=== PATIENT | male | born 1950 | race Caucasian/White ===

== ENCOUNTER 2021-06-20 09:00 | Observation (INO) ==
--- NOTE | 2021-06-14 14:53 | Anesthesiology Consultation ---
Date of Service June 14, 2021 Assessment & Plan (1) Encounter for pre-operative examination: - check BSG am DOS. - Case discussed with Dr. Stanley who advised optimization note to PCP regarding if EKG finding "cannot rule out anterior infarct" is new or demonstrated on previous EKG and if cardiology evaluation or testing is needed prior to surgery in setting of cardiac risk factors. Optimization note completed, awaiting PCP response. - COVID screening: Per steam conditioner filling on 06/13/2021: Travel screen negative, no known COVID-19 positive contacts or current COVID-19 related symptoms in past 2 weeks. Patient vaccinated. Surgeon arranging preop COVID testing, scheduled 06/16/2021 [place]. Awaiting results. Chart Review Chart Review: Pending: Refer to Additional Notes / Consult section and Patient NOT seen in Pre Admission Testing History Surgery Operation Date: 06/06/21 07:00 Proposed Procedures p Transurethral Resection Prostate - Fermin Xiong DO Operation Date: 06/20/21 07:00 Proposed Procedures p Transurethral Resection Raeann Xiong DO surgery re-scheduled from 06/06/2021 to 06/20/2021. Height/Weight Height: 5 ft 8.5 in Weight: 113.398 kg Allergies Allergy/AdvReac Type Severity Reaction Status Date / Time mustard Allergy Severe Anaphylaxis Verified 06/13/21 09:58 CHILI POWDER Allergy Severe Anaphylaxis Uncoded 06/13/21 09:58 NKDA Allergy Uncoded 06/13/21 09:58 Medications Home Medications Medication Instructions Recorded Confirmed Last Taken allopurinol 100 mg tablet 100 mg PO QAM 08/04/19 06/13/21 Unknown amlodipine 2.5 mg tablet 2.5 mg PO QAM 08/04/19 06/13/21 Unknown carvedilol 12.5 mg tablet 12.5 mg PO BID 08/04/19 06/13/21 Unknown chlorthalidone 25 mg tablet 25 mg PO QAM 08/04/19 06/13/21 Unknown aspirin 81 mg tablet,delayed 81 mg PO QAM 04/26/21 06/13/21 Unknown release (Enteric Coated Aspirin) cholecalciferol (vitamin D3) 25 25 mcg PO BID 04/26/21 06/13/21 Unknown mcg (1,000 unit) capsule multivitamin (Daily Multi-Vitamin) 1 tab PO QAM 04/26/21 06/13/21 Unknown citalopram 20 mg tablet 20 mg PO QAM 06/13/21 06/13/21 Unknown epinephrine 0.3 mg/0.3 mL 0.3 mg IM Q4H PRN 06/13/21 06/13/21 Unknown injection, auto-injector insulin glargine 100 unit/mL (3 55 unit SUBCUT QPM 06/13/21 06/13/21 Unknown mL) subcutaneous pen (Lantus Solostar U-100 Insulin) linagliptin 5 mg tablet (Tradjenta) 5 mg PO QAM 06/13/21 06/13/21 Unknown metformin 500 mg tablet,extended 1,500 mg PO QAM 06/13/21 06/13/21 Unknown release 24 hr omega-3 fatty acids 1,000 mg PO BID 06/13/21 06/13/21 Unknown simvastatin 40 mg tablet 40 mg PO QPM 06/13/21 06/13/21 Unknown valsartan 160 1 tab PO QAM 06/13/21 06/13/21 Unknown mg-hydrochlorothiazide 25 mg tablet Past Medical History Medical History Anxiety BPH (benign prostatic hyperplasia) Diabetes mellitus, type 2 History of esophageal stricture History of kidney stones History of skin cancer Hx of gout Hx of prostatitis Hyperlipidemia Hypertension Sleep apnea CPAP Past Family History Family History Mother Heart disease Other No family history of adverse response to anesthesia Past Surgical History Surgical History History of colonoscopy History of cystoscopy WITH STENT History of esophagogastroduodenoscopy (EGD) History of tonsillectomy and adenoidectomy History of tooth extraction S/P rhinoplasty Social History Smoking Status: Never smoker Hx Alcohol Use: Yes Alcohol type: beer, wine and hard liquor alcohol intake frequency: a few times a month substance use type: does not use Lab Results Anesthesia Preop Results Results Anesthesia Widget: Na 142 mmol/L (136-145) 05/16/21 K 5.1 mmol/L H 05/16/21 Cl 105 mmol/L (98-107) 05/16/21 CO2 27 mmol/L (21-32) 05/16/21 BUN 30 mg/dL H 05/16/21 Creat 1.55 mg/dL H 05/16/21 Glucose Level 106 mg/dL H 05/16/21 Urine Color Yellow 05/16/21 Urine Appearance Clear 05/16/21 Urine pH 6.0 (4.5-7.5) 05/16/21 Urine Specific [place] 1.018 (1.000-1.030) 05/16/21 Urine Protein Negative 05/16/21 Urine Glucose (UA) Negative 05/16/21 Urine Ketones Negative 05/16/21 Urine Blood Negative 05/16/21 Urine Nitrite Negative 05/16/21 Urine Bilirubin Negative 05/16/21 Urine Urobilinogen 1.0 05/16/21 Lab Comments: - A1c: 7.8% 11/28/2020. Surgeon's office made aware. Testing Electrocardiogram Date: 05/16/21 Normal sinus rhythm, rate 79 bpm Left axis deviation Cannot rule out anterior infarct, age undetermined Chest X-Ray Date: 05/16/21 tortuous aorta no acute cardiopulmonary abnormality
[~2021-06-20 09:00] MED LIST: LACTATED RINGER'S 1,000 ML IV SCH
[2021-06-20] MEDS ORDERED: MIDAZOLAM HCL 1 MG/ML 2ML VIAL ONE (10:31)
[2021-06-20] MEDS ORDERED: fentaNYL citrate 100 MCG/2 ML VIAL ONE ×2 (10:31→13:00)
[2021-06-20] MEDS ORDERED: PROPOFOL IV EMULSION 10 MG/ML 20 ML VIAL IV ONE (10:32)
[2021-06-20] MEDS ORDERED: ONDANSETRON INJ 2 MG/ML 2 ML VIAL ONE (10:32)
[2021-06-20] MEDS ORDERED: LIDOCAINE 2% 2 ML VIAL/AMP(20MG/ML) INFIL ONE (10:32)
[2021-06-20] MEDS ORDERED: DEXAMETHASONE SOD INJ 4 MG/ML VIAL ONE (10:32)
--- NOTE | 2021-06-20 10:51 | History & Physical Bridge Note ---
Date of Service June 20, 2021 History & Physical Bridge Note I have examined the patient, reviewed the History & Physical and in the interval since the performance of the History & Physical I have noted the following changes of clinical significance: no changes noted
[2021-06-20] MEDS ORDERED: ePHEDrine sulfate 50 MG/ML SYR ONE (12:24)
--- NOTE | 2021-06-20 12:40 | Operative Report ---
PG Post Operative Report Pre & Post Diagnosis Operation Date: 06/20/21 11:30 Bladder outlet obstruction Postop same I identified the patient and participated in the time-out.: Yes Procedure Operation Date: 06/20/21 11:30 Transurethral resection of prostate Surgeon Fermin Xiong, II, DO Miter Sawyer None Estimated Blood Loss 10 Findings Consistent with Post-Op Diagnosis Large Prostate with obstruction. Considerable lateral lobe enlargement. Specimens Prostate adenoma. Drains 22Fr three-way catheter Anesthesia Type General Complications none Disposition Disposition: Recovery Room Indications Patient with obstruction due to prostate enlargement. Risks and benefits discussed at length. Description of Procedure Patient was consented and brought back to the operating room. Patient was placed under anesthesia in the supine position and moved to the dorsal lithotomy position. Patient was prepped and draped in the regular sterile fashion. A time out was completed. A 30degree Cystoscope was placed into the bladder and the entire bladder was examined. The UO's were identified as well as the bladder neck, trigone, dome, and the other important landmarks. The prostatic urethra and large lobes/adenoma was assessed and the veru and bladder neck identified and area/size was assessed. The lateral lobes were found to be drastically increased. The patient had minimal median lobe. The resection scope was placed and the fine bipolar loop was selected. Starting at the 5 and 7 o'clock positions, a channel was created from bladder neck to the veru. With a channel created resection was then taken from the 1 and 11 o'clock position and moving downwards resected to remove the lateral lobes. Resection was taken to capsule fibers. The lateral lobes were resected and a excellent channel was created. A small amount of tissue was then resected from the 11 to 1 o'clock position. Care was taken to control bleeding during this process. The Specimen was removed and sent for analysis. The resection bed and any bleeding areas were fulgurated/cauterized and the entire area inspected. All bleeding was controlled. The bladder was inspected a final time. The bladder was emptied and irrigated. All specimen and debris was removed. The scope was removed with the bladder partially full. A catheter was placed and balloon elevated. This was easily irrigated. Continuous bladder irrigation was initiated. The patient was cleaned, aroused from anesthesia, and transferred to the pacu in stable condition having tolerated the procedure well with no complications. I was present and participated in all aspects of the procedure. The patient will be monitored in the PACU until transferred. Plan to maintain catheter for 1 to 2 weeks. We will set up a postop visit after discharge. Will observe overnight. I attest to the content of the Intraoperative Record and any orders documented therein. Any exceptions are noted below.
[2021-06-20] MEDS ORDERED: HYDROmorphone INJ 2 MG/ML SYR/VIAL IV PRN (12:44)
[2021-06-20] MEDS ORDERED: ATROPINE SULFATE 0.1 MG/ML 10ML SYR IV PRN (12:44)
[2021-06-20] MEDS ORDERED: PROMETHAZINE HCL 12.5 MG in SODIUM CHLORIDE 0.9% 50 ML IV PRN (12:44)
[2021-06-20] MEDS ORDERED: ePHEDrine sulfate 50 MG/ML AMP IV PRN (12:44)
[2021-06-20] MEDS ORDERED: ONDANSETRON INJ 2 MG/ML 2 ML VIAL IV PRN ×2 (12:44→14:07)
[2021-06-20] MEDS: fentaNYL citrate 100 MCG/2 ML VIAL IV PRN ×2 (13:01→13:15)
--- NOTE | 2021-06-20 13:20 | Anesthesiology Progress Note ---
Date of Service June 20, 2021 Anesthesia Post Procedure Vital Signs Vital Signs: Temp Pulse Pulse Resp BP BP Pulse Ox 06/20/21 13:10 75 14 145/83 H 100 06/20/21 13:00 74 13 141/83 H 100 06/20/21 12:49 36.4 C L 77 16 157/91 H 100 06/20/21 09:49 37 C 93 H 20 167/97 H 96 Pain Intensity Penis: Pain Intensity: 3 Transfer of Care Handoff Completed per policy Notes Mental Status: alert / awake / arousable Patient Amnestic to Procedure: Yes Nausea / Vomiting: adequately controlled Pain: adequately controlled Airway Patency, RR, SpO2: stable & adequate BP & HR: stable & adequate Hydration State: stable & adequate Anesthetic Complications: no major complications apparent
[2021-06-20] MEDS ORDERED: MoRPHine SULFATE 2 MG/ML CARP IV PRN (14:07)
[2021-06-20] MEDS ORDERED: EPINEPHrine INJ 1 MG/ML AMP IM PRN (14:07)
[2021-06-20] MEDS ORDERED: BELLADONNA/OPIUM SUPP 60 MG SUPP PR PRN (14:07)
[2021-06-20] MEDS: SODIUM CHLORIDE 0.9% 1000ML 1,000 ML IV SCH (14:21)
[2021-06-20 14:48] LABS: Basophils # (auto) 0.01 K/uL (0-0.2); Basophils % (auto) 0.1 %; Eosinophils % (auto) 1.1 %; Hemoglobin 13.3 g/dL (14.0-18.0); Immature Granulocytes # (auto) 0.04 K/uL (0.00-0.02); Immature Granulocytes % (auto) 0.5 %; Lymphocytes # (auto) 1.87 K/uL (1.2-3.4); Lymphocytes % (auto) 21.1 %; Mean Corpuscular Hemoglobin 31.4 pg (25-34); Mean Corpuscular Hgb Conc 34.1 g/dL (32-36); Mean Corpuscular Volume 92.2 fL (80-100); Mean Platelet Volume 9.1 fL (7.4-10.4); Monocytes # (auto) 0.94 K/uL (0.11-0.59); Monocytes % (auto) 10.6 %; Neutrophils # (auto) 5.92 K/uL (1.4-6.5); Neutrophils % (auto) 66.6 %; Platelet Count 200 K/uL (130-400); RDW Coefficient of Variation 13.2 % (11.5-14.5); RDW Standard Deviation 44.6 fL (36.4-46.3); Red Blood Count 4.23 M/uL (4.7-6.1); White Blood Count 8.88 K/uL (4.8-10.8)
[2021-06-20] MEDS: [UNRECOGNIZED DRUG - REMARK] SCH ×2 (15:13→23:40)
[2021-06-20 15:25] LABS: BUN Creatinine Ratio 18.3 (10-20); Calcium 9.3 mg/dl (8.5-10.1); Creatinine Clr Calc Pharmacy 57.6 ml/min; Est GFR (African American) 56.4 ml/min; Est GFR (Non-African American) 48.7 ml/min; Potassium 4.8 mmol/L (3.5-5.1)
[2021-06-20] MEDS ORDERED: CARBOHYDRATES FOR HYPOGLYCEMIA PO PRN (17:00)
[2021-06-20] MEDS ORDERED: GLUCOSE 40% GEL 15 GM TUBE PO PRN (17:00)
[2021-06-20] MEDS ORDERED: DEXTROSE 50% 50 ML SYRINGE IV PRN (17:00)
[2021-06-20] MEDS ORDERED: GLUCOSE 10 TABS/TUBE PO PRN (17:00)
[2021-06-20] MEDS ORDERED: GLUCAGON FOR INJ 1 MG VIAL SQ PRN (17:00)
--- NOTE | 2021-06-20 17:18 | Hospitalist Consultation ---
Date of Consultation June 20, 2021 Assessment & Plan (1) S/P TURP: - Patient is s/p TURP for BPH with persistent retention. Surgeon Dr. Xiong. Uneventful perioperative course. POD #0 - Larose catheter in place and to be managed by urology/primary team (2) BPH (benign prostatic hyperplasia): - s/p TURP-- see above (3) Diabetes mellitus, type 2: - Patient typically takes Lantus 55 units at bedtime and metformin ER 1500 mg daily - Given his current clear liquid diet, will continue Lantus but at a reduced dose of 20 units tonight. - In addition, will monitor blood sugars and correct via sliding scale along with correction dosing - A1C 7.8% (11/22) (4) Hypertension: - Continue prehospital medications including Norvasc, carvedilol, chlorthalidone, losartan, HCTZ -Continue to monitor (5) Sleep apnea: - Patient did not bring his CPAP with him. - ordered in house CPAP to be utilized (6) Hyperlipidemia: - continue Zocor as prior to hosptialization (7) CKD (chronic kidney disease): - at baseline (cr. 1.42) - renally adjust medications when warranted - monitor - patient takes an ASA EC (does not have a h/o CAD and takes this on his own accord). D/W patient that would not resume this until given the okay by urology-- typically would wait 48h - patient did have NST prior to this procedure which was negative for ischemia - plan of care D/W Dr. Farris. Further orders as warranted - thank you for allowing us to participate in the care of this patient. Supervising Physician Co-Signing Physician Notes Patient seen and examined, chart reviewed, case discussed with Odilia Tinoco PA-C and I agree with the assessment and plan as above except as otherwise noted 71yo M with a hx of DM2, HLD, HTN, CKD (baseline Cr ~1.4-1.55), and BPH w/ LUTS who presents for TURP. General: A&Ox3. NAD. Cooperative. HEENT: Atraumatic, normocephalic. Visual acuity and hearing grossly intact. Pulm: CTAB A&P. -wheezes, -rales, -rhonchi. Symmetrical chest rise. No increase work of breathing. No respiratory distress. Cardiac: RRR, -mrg. Radial pulses intact and symmetrical. Abdominal: Nontender, nondistended, soft. BS present. : Larose draining light yellow urine. All labs and images reviewed Pt doing well post-op, minimal to no pain, clear yellow urine. Clarified NO hx of CAD, negative stress test prior to admission. Med Management as above. History of Present Illness Reason for Consultation: Medical management Requesting Physician: Dr. Xiong Attending Physician: Fermin Xiong, II, DO History of Present Illness Mr. Cramer is a 71-year-old white male with an underlying past medical history of IDDM, CKD, FELIZ requiring CPAP, HTN, BPH, and anxiety who was seen in mo nsultation for medical management s/p TURP. Patient failing conservative measures for BPH still with retention leading to TURP procedure done today by Dr. Xiong. Patient had an uneventful perioperative course. Currently resting comfortably in his hospital bed. Some mild discomfort from the Larose catheter but otherwise denies fevers, chills, chest pain, shortness of breath, abdominal pain, nausea or vomiting. Records reviewed and patient noted to have "an abnormal EKG" during his preopera tive work-up. EKG reviewed and he had nonspecific but nonacute ST/T wave changes. This led to a nuclear stress test that was done by Dr. Avalos on 06/17 showing no evidence of ischemia. Otherwise, the rest of his preanesthesia work- up was unremarkable. Patient denies a history of postoperative complications in the past. He denies a personal and/or family history of DVT/PE/blood dyscrasia. Plan is for hopeful discharge tomorrow. Allergies Allergy/AdvReac Type Severity Reaction Status Date / Time mustard Allergy Severe Anaphylaxis Verified 06/20/21 09:53 Home Medications Medication Instructions Recorded Confirmed Type allopurinol 100 mg tablet 100 mg PO QAM 08/04/19 06/20/21 History amlodipine 2.5 mg tablet 2.5 mg PO QAM 08/04/19 06/20/21 History carvedilol 12.5 mg tablet 12.5 mg PO BID 08/04/19 06/20/21 History chlorthalidone 25 mg tablet 25 mg PO QAM 08/04/19 06/20/21 History aspirin 81 mg tablet,delayed 81 mg PO QAM 04/26/21 06/20/21 History release (Enteric Coated Aspirin) cholecalciferol (vitamin D3) 25 25 mcg PO BID 04/26/21 06/20/21 History mcg (1,000 unit) capsule multivitamin (Daily Multi-Vitamin) 1 tab PO QAM 04/26/21 06/20/21 History citalopram 20 mg tablet 20 mg PO QAM 06/13/21 06/20/21 History epinephrine 0.3 mg/0.3 mL 0.3 mg IM Q4H PRN 06/13/21 06/20/21 History injection, auto-injector insulin glargine 100 unit/mL (3 55 unit SUBCUT QPM 06/13/21 06/20/21 History mL) subcutaneous pen (Lantus Solostar U-100 Insulin) linagliptin 5 mg tablet (Tradjenta) 5 mg PO QAM 06/13/21 06/20/21 History metformin 500 mg tablet,extended 1,500 mg PO QAM 06/13/21 06/20/21 History release 24 hr omega-3 fatty acids 1,000 mg PO BID 06/13/21 06/20/21 History simvastatin 40 mg tablet 40 mg PO QPM 06/13/21 06/20/21 History valsartan 160 mg tablet 160 mg PO DAILY 06/20/21 06/20/21 History Patient History Medical History (Updated 06/20/21 @ 17:17 by Kika Tinoco PA-C) Anxiety BPH (benign prostatic hyperplasia) CKD (chronic kidney disease) Diabetes mellitus, type 2 History of esophageal stricture History of kidney stones History of skin cancer Hx of gout Hx of prostatitis Hyperlipidemia Hypertension Sleep apnea CPAP Surgical History (Updated 06/20/21 @ 17:12 by Kika Tinoco PA-C) History of colonoscopy History of cystoscopy WITH STENT History of esophagogastroduodenoscopy (EGD) History of tonsillectomy and adenoidectomy History of tooth extraction S/P rhinoplasty Family History Mother Heart disease Other No family history of adverse response to anesthesia Social History Smoking Status: Never smoker Second Hand Exposure: No; Hx Alcohol Use: Yes Alcohol type: beer, wine and hard liquor Preferred Language: [employer] Required: No Beliefs That Will Affect Care: None marital status: Current Living Situation: Spouse current occupational status: retired Feels Safe at Home: Yes Safety Concerns: Feels Safe At This Time Assistive Devices: CPAP, Denture - Upper, Glasses and Hearing Aid - Bilateral Review of Systems Review of Systems: All systems reviewed and are unremarkable except as noted in HPI and below Denies fevers, chills, headache, nasal congestion, sore throat, cough, chest ghada n, shortness of breath, palpitations, orthopnea, PND, abdominal pain, nausea, vomiting, diarrhea, constipation, dysuria, hematuria, frequency, back pain, joint pain or swelling, easy bruising or bleeding, skin lesions or rashes. Physical Exam Physical Exam: General: Resting comfortably in his hospital bed. NAD. HEENT: Head is AT/NC buccal mucosa is moist and pink Neck: No JVD. Negative hepatojugular reflex Cardiac: Distant but RRR Lungs: Distant due to habitus without W/R/R Abdomen: Normoactive X4. Soft and nontender in all quadrants. Extremities: No peripheral clubbing cyanosis or edema Neuro: A&O X4 cranial nerves II through XII are grossly intact no focal neuro deficits Skin: No obvious skin lesions or rashes Psych: Appropriate affect pleasant and cooperative Results & Data Results & Data ([facility]) Vital Signs (Past 12 Hours) Vital Signs Temp Pulse Pulse Resp BP BP Pulse Ox 06/20/21 16:17 73 18 119/72 98 06/20/21 14:55 80 18 144/72 H 96 06/20/21 14:31 80 20 139/75 93 06/20/21 13:50 66 19 133/71 99 06/20/21 13:40 69 13 131/73 99 06/20/21 13:30 36.4 C L 69 15 122/66 100 06/20/21 13:20 77 15 150/79 H 95 06/20/21 13:10 75 14 145/83 H 100 06/20/21 13:00 74 13 141/83 H 100 06/20/21 12:49 36.4 C L 77 16 157/91 H 100 06/20/21 09:49 37 C 93 H 20 167/97 H 96 Laboratory Results 06/20/21 14:15 06/20/21 14:15 Diagnostic Findings Preoperative EKG reviewed showing normal sinus rhythm with a rate of 79 bpm. Left axis deviation. Nonspecific but nonacute ST/T wave changes. This abnormal EKG led to a nuclear stress test done on 06/17 that showed no evidence of ischemia PG Care Time/CCT Total # of Minutes Spent Total Time Spent with Patient: Total time spent is greater than 50% in coordination of care (as documented) at patient's floor/unit and/or counseling patient: Coding Level of Care Code 47609 Inpt Consult Level 4 Diagnoses S/P TURP Z90.79 BPH (benign prostatic hyperplasia) N40.0 Diabetes mellitus, type 2 E11.9 Hypertension I10 Sleep apnea G47.30 Hyperlipidemia E78.5 CKD (chronic kidney disease) N18.9
[2021-06-20] MEDS: INSULIN ASPART PER UNIT SC SCH (20:46)
[2021-06-20] MEDS: carvediloL 12.5 MG TAB PO SCH (20:47)
[2021-06-20] MEDS: DOCUSATE SODIUM 100 MG CAP PO SCH (20:47)
[2021-06-20] MEDS: ceFAZolin 2000MG 2,000 MG/15 ML SYR IV SCH (20:47)
[2021-06-20] MEDS: CHOLECALCIFEROL 1,000 UNITS 25 MCG TAB PO SCH (20:47)
[2021-06-20] MEDS ORDERED: INSULIN GLARGINE SOLOSTAR 100 UNITS/ML 3 ML PEN SC SCH (21:00)
[2021-06-20] MEDS ORDERED: SIMVASTATIN 40 MG TAB PO SCH (21:00)
[2021-06-21] MEDS: SODIUM CHLORIDE 0.9% 1000ML 1,000 ML IV SCH (03:06)
[2021-06-21] MEDS: ceFAZolin 2000MG 2,000 MG/15 ML SYR IV SCH ×2 (03:06→11:30)
[2021-06-21 06:36] LABS: Basophils # (auto) 0.01 K/uL (0-0.2); Basophils % (auto) 0.1 %; Eosinophils # (auto) 0.17 K/uL (0-0.5); Eosinophils % (auto) 1.5 %; Hematocrit (blood only) 39.3 % (42-52); Hemoglobin 12.9 g/dL (14.0-18.0); Immature Granulocytes # (auto) 0.02 K/uL (0.00-0.02); Immature Granulocytes % (auto) 0.2 %; Lymphocytes # (auto) 1.68 K/uL (1.2-3.4); Lymphocytes % (auto) 14.9 %; Mean Corpuscular Hemoglobin 31.3 pg (25-34); Mean Corpuscular Hgb Conc 32.8 g/dL (32-36); Mean Corpuscular Volume 95.4 fL (80-100); Mean Platelet Volume 8.8 fL (7.4-10.4); Monocytes # (auto) 1.24 K/uL (0.11-0.59); Neutrophils # (auto) 8.14 K/uL (1.4-6.5); Neutrophils % (auto) 72.3 %; Platelet Count 207 K/uL (130-400); RDW Coefficient of Variation 13.5 % (11.5-14.5); RDW Standard Deviation 46.8 fL (36.4-46.3); Red Blood Count 4.12 M/uL (4.7-6.1); White Blood Count 11.26 K/uL (4.8-10.8)
[2021-06-21] MEDS: [UNRECOGNIZED DRUG - REMARK] SCH (07:00)
[2021-06-21 07:03] LABS: BUN Creatinine Ratio 16.5 (10-20); Calcium 8.5 mg/dl (8.5-10.1); Creatinine Clr Calc Pharmacy 61.5 ml/min; Est GFR (Non-African American) 52.7 ml/min; Magnesium 1.5 mg/dl (1.7-2.4); Potassium 4.5 mmol/L (3.5-5.1)
[2021-06-21] MEDS ORDERED: MAGNESIUM SULFATE / D5W 1 GM/100 ML BAG IV ONE (08:15)
--- NOTE | 2021-06-21 08:19 | Urology Progress Note ---
Date of Service June 21, 2021 Assessment & Plan (1) BPH w urinary obs/LUTS: (2) S/P TURP: Plan: 71 y/o male patient POD #1 s/p transurethral resection of the prostate with Dr. Xiong -Patient doing well post procedure, progressing as expected. -No reported pain this morning. -Afebrile, VSS. -Labs reviewed - Wbc 11.26, Hgb 12.9, Creatinine 1.33 -Tolerating PO diet -3 way Larose catheter intact, patent and draining clear yellow urine with CBI on slow -CBI clamped @0900, nursing aware - will reassess later this AM -Maintain Larose catheter -Continue supportive care -Appreciate hospital medicine consult -Anticipate home with Larose catheter later today presuming urine appropriate and pt continues to progress as expected -Pt reassessed this afternoon. -Patient feeling well, continues to progress as expected. -No reported pain. -Larose catheter intact, draining pink tinged urine. -Tolerating diet, no nausea or vomiting. -Hospitalist note reviewed - Patient is stable for D/C from a medical standpoint. -Expected clinical course discussed with patient including discharge instructions. Patient verbalized a good understanding. All questions answered. -Follow-up appointment and voiding trial in place with urology service. -Stable for discharge today, home with Larose catheter. Admission and Anticipated Discharge Date Admission Date: June 20, 2021 Subjective POD #1 s/p TURP Pt examined at bedside this morning. Awake, sitting in bedside chair on arrival. No acute issues overnight. No fevers. Denies any pain or discomfort at present. Tolerating diet, no nausea or vomiting. Larose intact, draining clear yellow urine with CBI on slow. Ambulating without issue. Review of Systems Constitutional: as per Subjective / HPI Cardiovascular: no chest pain, no dyspnea and no lightheadedness Genitourinary: + as per Subjective / HPI Physical Exam Constitutional: well developed and well nourished; no acute distress and not ill appearing Respiratory: normal respiratory effort and able to speak in complete sentences; no labored breathing and no audible wheezes Gastrointestinal (Abdomen): Inspection/Auscultation: abdomen normal to inspection Musculoskeletal: Head/Neck/Chest: normocephalic Skin: No visible rashes or lesions to exposed skin areas Neurologic: moves all extremities and awake Psychiatric: Orientation: alert, oriented x 3 and cooperative Genitourinary: Larose catheter intact, draining clear yellow urine with CBI on slow Results & Data ([facility]) Vital Signs (Past 12 Hours) Vital Signs Temp Pulse Resp BP Pulse Ox 06/21/21 07:22 36.9 C 83 18 135/74 97 06/21/21 03:09 37.1 C 75 16 112/71 97 06/20/21 22:10 36.6 C 76 16 129/74 96 PG Care Time/CCT Total # of Minutes Spent Total Time Spent with Patient: Total time spent is greater than 50% in coordination of care (as documented) at patient's floor/unit and/or counseling patient: Coding Level of Care Code None Diagnoses BPH w urinary obs/LUTS N40.1; N13.8 S/P TURP Z90.79
[2021-06-21] MEDS: DOCUSATE SODIUM 100 MG CAP PO SCH (08:53)
[2021-06-21] MEDS: carvediloL 12.5 MG TAB PO SCH (08:53)
[2021-06-21] MEDS: CHOLECALCIFEROL 1,000 UNITS 25 MCG TAB PO SCH (08:53)
[2021-06-21] MEDS ORDERED: VALSARTAN 80 MG TAB PO SCH (09:00)
[2021-06-21] MEDS ORDERED: CITALOPRAM 20 MG TAB PO SCH (09:00)
[2021-06-21] MEDS ORDERED: CHLORTHALIDONE 25 MG TAB PO SCH (09:00)
[2021-06-21] MEDS ORDERED: amLODIPine BESYLATE 5 MG TAB PO SCH (09:00)
[2021-06-21] MEDS ORDERED: hydroCHLOROthiazide 25 MG TAB PO SCH (09:00)
[2021-06-21] MEDS ORDERED: MULTIVITAMIN TAB PO SCH (09:00)
[2021-06-21] MEDS: INSULIN ASPART PER UNIT SC SCH (09:00)
--- NOTE | 2021-06-21 10:07 | Hospitalist Progress Note ---
Date of Service June 21, 2021 Assessment & Plan (1) S/P TURP: Plan: - Patient is s/p TURP for BPH with persistent retention by Dr. Xiong. Uneventful perioperative course. POD #1 and doing well - Larose catheter in place and to be managed by urology/primary team - minimal discomfort. Urine clear at this time (2) BPH (benign prostatic hyperplasia): Plan: - s/p TURP-- see above (3) Diabetes mellitus, type 2: Plan: - Patient typically takes Lantus 55 units at bedtime and metformin ER 1500 mg daily - given reduced dose of latus while on clear liquid diet but okay to resume prehospital regimen - while in house, blood sugars monitored and corrected via sliding scale along with correction dosing - A1C 7.8% (11/22) (4) Hypertension: Plan: - Continue prehospital medications including Norvasc, carvedilol, chlorthalidone, losartan (5) Sleep apnea: Plan: - continue CPAP as prior to hospitalization (6) Hyperlipidemia: Plan: - continue Zocor as prior to hosptialization (7) CKD (chronic kidney disease): Plan: - stable. Cr. 1.33 today (baseline 1.3-1.5) Plan: - patient takes an ASA EC (does not have a h/o CAD and takes this on his own accord). okay to resume 48 hours post-op unless further specified by urology - patient did have NST prior to this procedure which was negative for ischemia - patient is stable for D/C from a medical standpoint. Will sign-off but please do not hesitate to reconsult should a problem arise. Thank you for allowing us to participate in the care of this patient. Will D/W Dr. Pardo. Admission and Anticipated Discharge Date Admission Date: June 20, 2021 Subjective Patient seen on daily rounds today. Vocalizes no complaints or concerns. Overall feeling well. Only slight irritation from the Larose catheter but no significant pain or discomfort. Urine is clear. Denies fevers, chills, chest pain, shortness of breath, abdominal pain, nausea or vomiting. Blood sugars acceptable. Vital signs including blood pressure stable. Review of Systems Review of Systems: All systems reviewed and are unremarkable except as noted in HPI and below Denies fevers, chills, headache, nasal congestion, sore throat, cough, chest ghada n, shortness of breath, palpitations, orthopnea, PND, abdominal pain, nausea, vomiting, diarrhea, constipation, dysuria, hematuria, frequency, back pain, joint pain or swelling, easy bruising or bleeding, skin lesions or rashes. Physical Exam Physical Exam: General: Resting comfortably in his bedside chair. NAD. HEENT: Head is AT/NC buccal mucosa is moist and pink Neck: No JVD. Negative hepatojugular reflex Cardiac: Distant but RRR Lungs: CTA without W/R/R Abdomen: Normoactive X4. Soft and nontender in all quadrants. Larose catheter in place. Urine clear Extremities: No peripheral clubbing cyanosis or edema Neuro: A&O X4 cranial nerves II through XII are grossly intact no focal neuro deficits Skin: No obvious skin lesions or rashes Psych: Appropriate affect pleasant and cooperative Results & Data Results & Data ([facility]) Vital Signs (Past 12 Hours) Vital Signs Temp Pulse Resp BP Pulse Ox 06/21/21 07:22 36.9 C 83 18 135/74 97 06/21/21 03:09 37.1 C 75 16 112/71 97 06/20/21 22:10 36.6 C 76 16 129/74 96 Laboratory Results 06/21/21 06:14 06/21/21 06:14 PG Care Time/CCT Total # of Minutes Spent Total Time Spent with Patient: Total time spent is greater than 50% in coordination of care (as documented) at patient's floor/unit and/or counseling patient: Coding Level of Care Code 46633 Inpt Consult Level 2 Diagnoses S/P TURP Z90.79 BPH (benign prostatic hyperplasia) N40.0 Diabetes mellitus, type 2 E11.9 Hypertension I10 Sleep apnea G47.30 Hyperlipidemia E78.5 CKD (chronic kidney disease) N18.9
--- NOTE | 2021-06-21 16:21 | Discharge Summary ---
Date of Service June 21, 2021 Admission HPI Per Admitting Provider 71yo M admitted s/p transurethral resection of the prostate with Dr. Xiong Admission Exam Per Admitting Provider Constitutional well developed and well nourished; no acute distress and not ill appearing Eyes no eyelid abnormality Neck normal visual inspection Respiratory normal respiratory effort, lungs clear to auscultation able to speak in complete sentences; no respiratory distress Cardiovascular RRR, no murmur, no edema Gastrointestinal (Abdomen) normal bowel sounds, soft, nontender, no hepatosplenomegaly Inspection/Auscultation: abdomen normal to inspection; abdomen not distended Musculoskeletal Head/Neck/Chest: normocephalic Skin no rashes, warm and dry Neurologic normal touch/pain/proprioception Psychiatric Orientation: alert and oriented x 3 Genitourinary no CVA tenderness Principal Diagnosis BPH, Bladder outlet obstruction Discharge Exam Constitutional: well developed and well nourished; no acute distress and not ill appearing Respiratory: normal respiratory effort and able to speak in complete sentences; no labored breathing and no audible wheezes Gastrointestinal (Abdomen): Inspection/Auscultation: abdomen normal to inspection Musculoskeletal: Head/Neck/Chest: normocephalic Skin: No visible rashes or lesions to exposed skin areas Neurologic: moves all extremities and awake Psychiatric: Orientation: alert, oriented x 3 and cooperative Genitourinary: Larose catheter intact, draining clear yellow urine Discharge Data Allergies Allergy/AdvReac Type Severity Reaction Status Date / Time mustard Allergy Severe Anaphylaxis Verified 06/20/21 09:53 Consultations 06/20/21 14:07 Consult Hospitalist Routine Procedures Performed Operation Date: 06/06/21 07:00 <No data on this case meets the specified criteria> Operation Date: 06/20/21 11:30 Actual Procedures p Transurethral Resection Prostate(Not Applicable) - Fermin Xiong, DO Hospital Course (1) BPH w urinary obs/LUTS: 71 y/o male patient POD #1 s/p transurethral resection of the prostate wi th Dr. Xiong -Patient doing well post procedure, progressing as expected. -No reported pain this morning. -Afebrile, VSS. -Labs reviewed - Wbc 11.26, Hgb 12.9, Creatinine 1.33 -Tolerating PO diet -3 way Larose catheter intact, patent and draining clear yellow urine with CBI on slow -CBI clamped @0900, nursing aware - will reassess later this AM -Maintain Larose catheter -Continue supportive care -Appreciate hospital medicine consult -Anticipate home with Larose catheter later today presuming urine appropriate and pt continues to progress as expected -Pt reassessed this afternoon. -Patient feeling well, continues to progress as expected. -No reported pain. -Larose catheter intact, draining pink tinged urine. -Tolerating diet, no nausea or vomiting. -Hospitalist note reviewed - Patient is stable for D/C from a medical standpoint. -Expected clinical course discussed with patient including discharge instructions. Patient verbalized a good understanding. All questions answered. -Follow-up appointment and voiding trial in place with urology service. -Stable for discharge today, home with Larose catheter. Total Time Total Time Spent Total Time Spent (In Minutes): 15 Discharge Plan Discharge Items Patient Disposition: Home - Self-Care Reason For Visit: Benign Prostatic Hyperplasia Discharge Diagnosis: Benign Prostatic Hyperplasia Activity: Per Instructions section Lifting: No more than 25 pounds Bathing Comment: Ok to shower. No tub baths or soaks. Sexual Activity: Wait until after follow-up appointment Exercise/Sports: Wait until after follow-up appointment Driving/Machine Use: Do not drive if taking prescription pain medication. Non-emergency contact: Surgeon and Urologist Call non-emergency contact if: you have any medication questions, your pain is not controlled, your pain is worsening and you have a fever Follow-up/Referrals: Fermin Xiong DO [Physician] - 07/05/21 10:00 am Jono Chirinos MD [Primary Care Provider] - [facility],Nurse [FAKE FOR SCHEDULES] - 07/05/21 10:40 am Diet: Carb Consistent or DM2 Addtl Attending Provider Instructions: Please take all medications as prescribed and keep all follow-ups as scheduled. Please call our office at [phone] with any questions, concerns or need to reschedule appointments for any reason. We are happy to assist you. Your follow-up appointment for catheter removal and with Dr. Xiong is scheduled for July 05, 2021 at 10AM. You can resume your aspirin tomorrow if your urine remains clear to light pink. We have sent an antibiotic to your pharmacy of choice. Please begin antibiotic as prescribed the day BEFORE your scheduled voiding trial at [facility]. Please continue the antibiotic twice daily until completed. Tips for your recovery at home: Dont be alarmed by brownish or reddish blood or clots in your urine. This is a result of the procedure. This may occur off and on for weeks to months after the procedure but should continue to improve. Drink plenty of fluids during the day (enough to keep your urine very light colored). This will help keep a healthy flow of urine. Do not lift >25 lbs until your followup Avoid constipation. Please use a stool softener (Colace) for the first two weeks after your procedure Be sure to finish the antibiotics as prescribed. If you go home with a catheter, please wash tubing where it enters your body twice daily with mild soap (Dove or Dial). Once your catheter is removed, expect some blood in your urine and some burning when you urinate. You should have an appointment to have this removed, if you do not please call our office to arrange. When to call [facility] at [phone]: Your urine contains heavy blood clots You are constantly leaking urine Your catheter is not draining Fever of 101F or higher, chills, nausea, or vomiting Your pain is not relieved with medication Addtl Breakfast Supervisor Provider Instructions: - Okay to hold aspirin for now with resumption 48 hours postoperatively unless otherwise specified by urology - your magnesium level was low today. You were given IV magnesium and sent home with continued supplementation to take for the next week. - would advise your PCP repeat labs (mag level) in 1-2 weeks to trend and that supplementation be continued if remains low. - increase magnesium rich foods (green leafy vegetables) Pending Studies at Discharge: Yes (Pathology) Stand-Alone Forms: My [facility] [employer], Smoking Cessation Medications and DC Order Prescriptions: New magnesium oxide 400 mg (241.3 mg magnesium) tablet 400 mg PO DAILY Qty: 7 RF: 0 ciprofloxacin HCl 500 mg tablet 500 mg PO BID 3 Days Qty: 6 RF: 0 docusate sodium [Colace] 100 mg capsule 100 mg PO BID Qty: 30 RF: 0 Continued chlorthalidone 25 mg tablet 25 mg PO QAM RF: 0 carvedilol 12.5 mg tablet 12.5 mg PO BID RF: 0 allopurinol 100 mg tablet 100 mg PO QAM RF: 0 amlodipine 2.5 mg tablet 2.5 mg PO QAM RF: 0 multivitamin [Daily Multi-Vitamin] Tablet 1 tab PO QAM RF: 0 cholecalciferol (vitamin D3) 25 mcg (1,000 unit) capsule 25 mcg PO BID RF: 0 aspirin [Enteric Coated Aspirin] 81 mg tablet,delayed release (DR/EC) 81 mg PO QAM RF: 0 citalopram 20 mg Tablet 20 mg PO QAM RF: 0 metformin 500 mg Tablet Extended Release 24 Hr 1,500 mg PO QAM RF: 0 omega-3 fatty acids Capsule 1,000 mg PO BID RF: 0 Lantus Solostar U-100 Insulin 100 unit/mL (3 mL) Insulin Pen 55 unit SUBCUT QPM RF: 0 Tradjenta 5 mg Tablet 5 mg PO QAM RF: 0 simvastatin 40 mg tablet 40 mg PO QPM RF: 0 epinephrine 0.3 mg/0.3 mL Auto-Injector 0.3 mg IM Q4H PRN (Reason: ALLERGY RELIEF) RF: 0 valsartan 160 mg Tablet 160 mg PO DAILY RF: 0 Discharge Orders: Discharge Order (Routine); Ordered 06/21/21 Ordered By: Yue Garcia Admission Data Admit Date/Time: 06/20/21 10:56 Attending Provider: Fermin Xiong Admit Provider: Fermin Xiong Primary Care Provider: Jono Chirinos Other Providers: Arun Erickson ; Kaylee Bowden ; Abhijeet Sanches ; Parveen Huerta ; Fili Leo ; Jesse Foss V. ; Yue Abarca ; Bryant Denson ; Jared Mccall ; Abhilash Gomez ; Jose Birmingham ; Mook Hung ; Wes Smith ; Nancy Herrera ; Jaqui Singleton ; Kimberli Garza ; Zeferino Capone ; Kika Enriquez ; Marion Al ; Tracy Jay ; Ilia Pardo ; Jimenez Vigil ; Florence Brown ; Jody Do ; Haris Bennett ; Yue Jones ; Gilson Hernandez ; Suzi Kim ; Esau León ; Bryant Ag ; Abhijit Sahu ; Sarah Chandler ; Kasey Ramos ; Dm Hyde ; Kika Tinoco ; Arun Farris ; Irvin Akers ; Kelley Staley ; Juanita Dewitt ; Mihceal Blanc Other Interventions: Discharge Summary Assessment (RN) Last Done: 06/21/21 10:48 Coding Level of Care Code D/C DAY MANAGEMENT <30 MINS Diagnoses BPH w urinary obs/LUTS N40.1; N13.8
== END 2021-06-21 13:08 | disposition home or self-care (01) ==
LOC: 3E 09:00 → ASU 09:00